=== PATIENT | female | born 1995 | race African-American/Black ===

== ENCOUNTER 2017-01-03 22:13 | Emergency (ER) | payer OTHER ==
[~2017-01-03] VITALS: Ht 157.5 cm; Wt 80.1 kg
[2017-01-03 22:19] VITALS: BP 135/89; PULSE 103; RESP 20; TEMP 98; O2SAT 98
[2017-01-03] MEDS ORDERED: BENZ1CAP34 PO (22:43)
[2017-01-03] MEDS ORDERED: ZITHTAB PO (22:43)
[2017-01-03] MEDS ORDERED: PRED10PA PO (22:43)
--- NOTE | 2017-01-03 22:48 | PD ---
HPI Chief Complaint: pelvic pain Time Seen by Provider: 22:38 Travel History International Travel<30 days: No Contact w/Intl Traveler<30days: No Traveled to known affect area: No History of Present Illness HPI This 21-year-old female is complaining of bilateral lower abdominal pain. Says the pain is been going on for several months. Sometimes is aggravated by eating. She has had sporadic vomiting and diarrhea. She has not lost weight in fact she thinks she has gained weight. She has never been . She was here last June and thought to have PID at that time. She did not respond to treatment, she was given Rocephin and Zithromax at that time. Her cultures for GC and Chlamydia were negative. She didn't get the pain every day. When it does come on it lasts about an hour. She has not noted any triggers. It is a lower abdominal crampy pain. She has been on multiple bouts of antibiotics over this period of time for treatment of a sinus infection PFSH Past Medical History Diminished Hearing: No Headaches: Yes Immunizations Current: No Tetanus Vaccination: Unknown Influenza Vaccination: No ?: Unknown LMP: WEEK , IRREGURLAR PERIODS Past Surgical History Surgical History: No Previous Surgery Social History Alcohol Use: No Tobacco Use: No Substance Use: No Allergies-Medications (Allergen,Severity, Reaction): Coded Allergies: No Known Allergies (Unverified , 01/03/17) Reported Meds & Prescriptions Reported Meds & Active Scripts Active Reported Benzonatate 200 Mg Cap 200 Mg PO TID PRN Prednisone (21) 10 mg tab Dose Pack (Prednisone) 10 Mg Pack 10 Mg PO DIRECTED Zithromax Z-Justin (Azithromycin) 250 Mg Dspk 250 Mg PO DIRECTED 500 MG (2 tabs) day 1, then 1 tab days 2-5. Review of Systems General / Constitutional: No: Fever, Chills, Weight Loss Eyes: No: Blurred Vision HENT: No: Headaches, Vertigo Cardiovascular: No: Chest Pain or Discomfort, Palpitations Respiratory: No: Cough, Shortness of Breath Gastrointestinal: Positive: Nausea, Vomiting, Diarrhea Genitourinary: Positive: Pelvic Pain Musculoskeletal: No: Myalgias, Arthralgias Skin: No Rash, No Itching Neurologic: No: Weakness Psychiatric: No: Anxiety Hematologic/Lymphatic: No: Easy Bruising Physical Exam Narrative GENERAL: Well-developed female SKIN: Focused skin assessment warm/dry. HEAD: Atraumatic. Normocephalic. EYES: Pupils equal and round. No scleral icterus. No injection or drainage. ENT: No nasal bleeding or discharge. Mucous membranes pink and moist. NECK: Trachea midline. No JVD. CARDIOVASCULAR: Regular rate and rhythm. No murmur appreciated. RESPIRATORY: No accessory muscle use. Clear to auscultation. Breath sounds equal bilaterally. GASTROINTESTINAL: Abdomen soft, non-tender, nondistended. Hepatic and splenic margins not palpable. Pelvic: There is no vaginal discharge. There is no pain with movement of the cervix. There is is not enlarged is no adnexal mass MUSCULOSKELETAL: No obvious deformities. No clubbing. No cyanosis. No edema. NEUROLOGICAL: Awake and alert. No obvious cranial nerve deficits. Motor grossly within normal limits. Normal speech. PSYCHIATRIC: Appropriate mood and affect; insight and judgment normal. Data Data Last Documented VS Vital Signs Date Time Temp Pulse Resp B/P Pulse Ox O2 Delivery O2 Flow Rate FiO2 01/03/17 23:24 20 01/03/17 22:19 98.0 103 135/89 98 Orders Complete Blood Count With Diff (01/03/17 22:44) Comprehensive Metabolic Panel (01/03/17 22:44) Urinalysis - C+S If Indicated (01/03/17 22:44) Gc And Chlamydia Pcr (01/03/17 22:44) Ed Urine Pregnancytest Poc (01/03/17 22:58) Labs Laboratory Tests Test 01/03/17 01/03/17 22:50 23:00 Urine Color YELLOW Urine Turbidity SLIGHT Urine pH 6.0 Urine Specific [place] 1.023 Urine Protein NEG mg/dL Urine Glucose (UA) NEG mg/dL Urine Ketones TRACE mg/dL Urine Occult Blood NEG Urine Nitrite NEG Urine Bilirubin NEG Urine Leukocyte Esterase NEG Urine WBC 0-2 /hpf Urine Squamous Epithelial > 8 /hpf Cells Urine Bacteria FEW /hpf Urine Mucus FEW /lpf Microscopic Urinalysis Comment CULT NOT INDICATED White Blood Count 8.9 TH/MM3 Red Blood Count 4.64 MIL/MM3 Hemoglobin 12.8 GM/DL Hematocrit 39.1 % Mean Corpuscular Volume 84.2 FL Mean Corpuscular Hemoglobin 27.5 PG Mean Corpuscular Hemoglobin 32.7 % Concent Red Cell Distribution Width 13.1 % Platelet Count 315 TH/MM3 Mean Platelet Volume 8.4 FL Neutrophils (%) (Auto) 54.0 % Lymphocytes (%) (Auto) 31.0 % Monocytes (%) (Auto) 8.6 % Eosinophils (%) (Auto) 3.7 % Basophils (%) (Auto) 2.7 % Neutrophils # (Auto) 4.9 TH/MM3 Lymphocytes # (Auto) 2.7 TH/MM3 Monocytes # (Auto) 0.8 TH/MM3 Eosinophils # (Auto) 0.3 TH/MM3 Basophils # (Auto) 0.2 TH/MM3 CBC Comment DIFF FINAL Differential Comment Sodium Level 141 MEQ/L Potassium Level 4.1 MEQ/L Chloride Level 105 MEQ/L Carbon Dioxide Level 28.6 MEQ/L Anion Gap 7 MEQ/L Blood Urea Nitrogen 14 MG/DL Creatinine 0.73 MG/DL Estimat Glomerular Filtration 124 ML/MIN Rate Random Glucose 95 MG/DL Calcium Level 9.1 MG/DL Total Bilirubin 0.2 MG/DL Aspartate Amino Transf 25 U/L (AST/SGOT) Alanine Aminotransferase 50 U/L (ALT/SGPT) Alkaline Phosphatase 90 U/L Total Protein 8.1 GM/DL Albumin 3.9 GM/DL [facility] Medical Decision Making Medical Screen Exam Complete: Yes Emergency Medical Condition: Yes Medical Record Reviewed: Yes Differential Diagnosis Differential includes inflammatory bowel disease, irritable bowel disease, Narrative Course Her white count is normal. Urine is negative for infection. Pelvic exam is not suggestive of PID. Patient is having intermittent pain every couple of days. She has been on multiple courses of antibiotics recently there is no evidence of surgical emergency. I will prescribe Bentyl for her to use as needed. To follow-up with her own medical doctor Diagnosis Primary Impression: Irritable bowel syndrome Qualified Code: K58.9 - Irritable bowel syndrome, unspecified type Scripts Dicyclomine (Bentyl)20 Mg Tab20 Mg PO TID #30 TAB Ref 0 Prov:Mor Moore MD 01/03/17 Disposition: 01 DISCHARGE HOME Condition: Stable Mor Moore MD Jan 03, 2017 22:48
[2017-01-03 23:09] LABS: AUTOMATED NEUTROPHIL # 4.9 TH/MM3 (1.8-7.7); BASOPHIL # 0.2 TH/MM3 (0-0.2); BASOPHIL % 2.7 % (0.0-2.0); EOSINOPHIL # 0.3 TH/MM3 (0-0.4); EOSINOPHIL % 3.7 % (0.0-4.0); HEMATOCRIT 39.1 % (35.0-46.0); HEMO FLAGS DIFF FINAL; LYMPHOCYTE # 2.7 TH/MM3 (1.0-4.8); MEAN CELL VOLUME 84.2 FL (80.0-100.0); MEAN CORPUSCULAR HEMOGLOBIN 27.5 PG (27.0-34.0); MEAN CORPUSCULAR HGB CONC 32.7 % (32.0-36.0); MONO % 8.6 % (0.0-8.0); PLATELET COUNT 315 TH/MM3 (150-450); RED BLOOD COUNT 4.64 MIL/MM3 (4.00-5.30); RED CELL DISTRIBUTION WIDTH 13.1 % (11.6-17.2); WHITE BLOOD COUNT 8.9 TH/MM3 (4.0-11.0)
[2017-01-03 23:11] LABS: BLOOD, URINE NEG (NEG); GLUCOSE,URINE NEG (NEG); KETONE, URINE TRACE mg/dL (NEG); NITRITE,URINE NEG (NEG)
[2017-01-03 23:17] LABS: CHLORIDE 105 MEQ/L (98-107); POTASSIUM 4.1 MEQ/L (3.5-5.1); SODIUM (NA) 141 MEQ/L (136-145)
[2017-01-03 23:20] LABS: ANION GAP 7 MEQ/L (5-15); BICARBONATE 28.6 MEQ/L (21.0-32.0); BLOOD UREA NITROGEN 14 MG/DL (7-18)
[2017-01-03 23:23] LABS: ALT (GPT) 50 U/L (9-42); AST (GOT) 25 U/L (16-38); GLOMERULAR FILTRATION RATE 124 ML/MIN (>89)
[2017-01-03 23:25] LABS: TOTAL BILIRUBIN ADULT 0.2 MG/DL (0.2-1.0)
[2017-01-03 23:26] LABS: ALKALINE PHOSPHATASE 90 U/L (45-117)
[2017-01-03 23:29] LABS: URINE COLOR YELLOW (YELLW/STRAW)
[2017-01-03 23:30] LABS: MUCUS URINE FEW /lpf (OCC); SQUAMOUS EPITHELIAL CELL URINE > 8 /hpf (0-5)
[2017-01-03 23:31] LABS: BACTERIA, URINE FEW /hpf; COMMENT (UR) CULT NOT INDICATED; CULTURE IF INDICATED CULT NOT INDICATED; WBC, URINE 0-2 /hpf (0-5)
[2017-01-03] MEDS ORDERED: BENT20TA PO (23:35)
[2017-01-03 23:53] VITALS: BP 146/74
[2017-01-04 11:07] LABS: CHLAMYDIA PCR NOT DETECTED (NOT DETECT); NEISSERIA PCR NOT DETECTED (NOT DETECT)
== END 2017-01-03 23:55 | disposition home or self-care (01) ==
LOC: PHED 22:13
DX: K58.0 Irritable bowel syndrome with diarrhea (principal)
CPT/HCPCS: 80053; 81001; 84703; 85025; 87491; 87591; 99284

== ENCOUNTER 2017-02-22 14:43 | Emergency (ER) | payer OTHER ==
[~2017-02-22] VITALS: Ht 154.9 cm; Wt 83.2 kg
[~2017-02-22 14:43] MED LIST: BENT20TA PO; BENZ1CAP34 PO; PRED10PA PO; ZITHTAB PO
[2017-02-22 14:50] VITALS: BP 137/90; PULSE 90; RESP 20; TEMP 98.2; O2SAT 99
[2017-02-22 15:39] LABS: BLOOD, URINE NEG (NEG); GLUCOSE,URINE NEG (NEG); KETONE, URINE NEG (NEG); NITRITE,URINE NEG (NEG)
[2017-02-22 15:42] LABS: METHOD OF COLLECTION CLEAN CATCH; URINE COLOR STRAW (YELLW/STRAW)
--- NOTE | 2017-02-22 16:08 | PD ---
HPI Chief Complaint: Abdominal Pain Time Seen by Provider: 15:51 Travel History International Travel<30 days: No Contact w/Intl Traveler<30days: No Traveled to known affect area: No History of Present Illness HPI This 21-year-old female is complaining of right lower quadrant pain. She says the pain started last night. It is not constant. It does vary somewhat in intensity. She does not recall having pain like this before. She has been having intermittent abdominal pain over the past few months. Her last period was in October. She says her periods are always erratic. She has never been . On the last visit here she had a pelvic exam which was unremarkable. the patient wishes not to have one on this visit. There is been no vomiting or diarrhea. She is not aware of any fever. [facility] Past Medical History Medical History: Denies Significant Hx Diminished Hearing: No Headaches: Yes Immunizations Current: No Influenza Vaccination: No ?: Not Past Surgical History Surgical History: No Previous Surgery Social History Alcohol Use: No Tobacco Use: No Substance Use: No Allergies-Medications (Allergen,Severity, Reaction): Coded Allergies: No Known Allergies (Unverified , 01/03/17) Reported Meds & Prescriptions Reported Meds & Active Scripts Active Review of Systems General / Constitutional: No: Fever, Chills Eyes: No: Diploplia, Blurred Vision HENT: No: Headaches, Vertigo Cardiovascular: No: Chest Pain or Discomfort, Palpitations Respiratory: No: Cough, Shortness of Breath Gastrointestinal: Positive: Nausea, Abdominal Pain, No: Vomiting, Diarrhea Genitourinary: No: Frequency Skin: No Rash, No Itching Physical Exam Narrative GENERAL: Well-developed female SKIN: Focused skin assessment warm/dry. HEAD: Atraumatic. Normocephalic. EYES: Pupils equal and round. No scleral icterus. No injection or drainage. ENT: No nasal bleeding or discharge. Mucous membranes pink and moist. NECK: Trachea midline. No JVD. CARDIOVASCULAR: Regular rate and rhythm. No murmur appreciated. RESPIRATORY: No accessory muscle use. Clear to auscultation. Breath sounds equal bilaterally. GASTROINTESTINAL: Abdomen soft, there is right lower quadrant tenderness without rigidity nondistended. Hepatic and splenic margins not palpable. MUSCULOSKELETAL: No obvious deformities. No clubbing. No cyanosis. No edema. NEUROLOGICAL: Awake and alert. No obvious cranial nerve deficits. Motor grossly within normal limits. Normal speech. PSYCHIATRIC: Appropriate mood and affect; insight and judgment normal. Data Data Last Documented VS Vital Signs Date Time Temp Pulse Resp B/P Pulse Ox O2 Delivery O2 Flow Rate FiO2 02/22/17 17:24 74 16 111/60 100 Room Air 02/22/17 14:50 98.2 Orders Urinalysis - C+S If Indicated (02/22/17 14:59) Ed Urine Pregnancytest Poc (02/22/17 14:59) Complete Blood Count With Diff (02/22/17 15:57) Comprehensive Metabolic Panel (02/22/17 15:57) Ct Abd/Pel W Iv Contrast(Rout) (02/22/17 15:57) Urine Culture (02/22/17 15:07) Iohexol 350 Inj (Omnipaque 350 Inj) (02/22/17 16:34) Labs Laboratory Tests Test 02/22/17 02/22/17 02/22/17 15:07 15:30 16:40 Urine Collection Type CLEAN CATCH Urine Color STRAW Urine Turbidity SLIGHT Urine pH 6.0 Urine Specific [place] 1.019 Urine Protein NEG mg/dL Urine Glucose (UA) NEG mg/dL Urine Ketones NEG mg/dL Urine Occult Blood NEG Urine Nitrite NEG Urine Bilirubin NEG Urine Leukocyte Esterase NEG Urine WBC 0-2 /hpf Urine Squamous Epithelial > 8 /hpf Cells Urine Amorphous Sediment MOD Urine Bacteria MOD /hpf Microscopic Urinalysis Comment CULTURE INDICATED Urine Collection Time 1507 White Blood Count 6.9 TH/MM3 Red Blood Count 4.62 MIL/MM3 Hemoglobin 12.6 GM/DL Hematocrit 38.2 % Mean Corpuscular Volume 82.8 FL Mean Corpuscular Hemoglobin 27.2 PG Mean Corpuscular Hemoglobin 32.9 % Concent Red Cell Distribution Width 12.1 % Platelet Count 269 TH/MM3 Mean Platelet Volume 9.0 FL Neutrophils (%) (Auto) 61.8 % Lymphocytes (%) (Auto) 26.2 % Monocytes (%) (Auto) 8.7 % Eosinophils (%) (Auto) 2.5 % Basophils (%) (Auto) 0.8 % Neutrophils # (Auto) 4.2 TH/MM3 Lymphocytes # (Auto) 1.8 TH/MM3 Monocytes # (Auto) 0.6 TH/MM3 Eosinophils # (Auto) 0.2 TH/MM3 Basophils # (Auto) 0.1 TH/MM3 CBC Comment AUTO DIFF Differential Comment AUTO DIFF CONFIRMED Platelet Estimate NORMAL Platelet Morphology Comment NORMAL Sodium Level 140 MEQ/L Potassium Level 4.0 MEQ/L Chloride Level 106 MEQ/L Carbon Dioxide Level 29.2 MEQ/L Anion Gap 5 MEQ/L Blood Urea Nitrogen 12 MG/DL Creatinine 0.61 MG/DL Estimat Glomerular Filtration 153 ML/MIN Rate Random Glucose 78 MG/DL Calcium Level 8.5 MG/DL Total Bilirubin LESS THAN 0.1 MG/DL Aspartate Amino Transf 20 U/L (AST/SGOT) Alanine Aminotransferase 36 U/L (ALT/SGPT) Alkaline Phosphatase 99 U/L Total Protein 6.8 GM/DL Albumin 3.2 GM/DL [facility] Medical Decision Making Medical Screen Exam Complete: Yes Emergency Medical Condition: Yes Medical Record Reviewed: Yes Differential Diagnosis Differential includes ovarian cyst, appendicitis, nonspecific abdominal pain Narrative Course CT shows bilateral ovarian cysts with a small amount of free fluid. There is no evidence of appendicitis. Patient is stable for discharge Diagnosis Primary Impression: Ovarian cyst Disposition: DISCHARGE HOME Condition: Stable Mor Moore MD February 22, 2017 16:08
[2017-02-22 16:09] VITALS: BP 120/74; PULSE 78; RESP 18; O2SAT 98
[2017-02-22 16:09] LABS: AUTOMATED NEUTROPHIL # 4.2 TH/MM3 (1.8-7.7); BASOPHIL # 0.1 TH/MM3 (0-0.2); BASOPHIL % 0.8 % (0.0-2.0); EOSINOPHIL # 0.2 TH/MM3 (0-0.4); EOSINOPHIL % 2.5 % (0.0-4.0); HEMATOCRIT 38.2 % (35.0-46.0); LYMPH % 26.2 % (9.0-44.0); LYMPHOCYTE # 1.8 TH/MM3 (1.0-4.8); MEAN CELL VOLUME 82.8 FL (80.0-100.0); MEAN CORPUSCULAR HEMOGLOBIN 27.2 PG (27.0-34.0); MEAN CORPUSCULAR HGB CONC 32.9 % (32.0-36.0); MONO % 8.7 % (0.0-8.0); NEUT % 61.8 % (16.0-70.0); PLATELET COUNT 269 TH/MM3 (150-450); RED BLOOD COUNT 4.62 MIL/MM3 (4.00-5.30); RED CELL DISTRIBUTION WIDTH 12.1 % (11.6-17.2); WHITE BLOOD COUNT 6.9 TH/MM3 (4.0-11.0)
[2017-02-22 16:11] LABS: BACTERIA, URINE MOD /hpf; COMMENT (UR) CULTURE INDICATED; CULTURE IF INDICATED CULTURE INDICATED; SQUAMOUS EPITHELIAL CELL URINE > 8 /hpf (0-5); WBC, URINE 0-2 /hpf (0-5)
[2017-02-22 16:17] LABS: HEMO FLAGS AUTO DIFF
[2017-02-22] MEDS ORDERED: IOHEXOL 350 MG/ML 10 ML VIAL (for RAD DIAG) IV ONE (16:34)
--- NOTE | 2017-02-22 16:44 | RADHPO ---
EXAM DATE/TIME: 02/22/2017 16:19 [place] COMPARISON: No previous studies available for comparison. INDICATIONS : Right lower quadrant pain. Evaluate for appendicitis. IV CONTRAST: 90 cc Omnipaque 350 (iohexol) IV ORAL CONTRAST: No oral contrast ingested. RADIATION DOSE: 14.07 CTDIvol (mGy) MEDICAL HISTORY : None SURGICAL HISTORY : None. ENCOUNTER: Initial ACUITY: 1 day PAIN SCALE: 4/10 LOCATION: Right lower quadrant TECHNIQUE: Volumetric scanning of the abdomen and pelvis was performed. Using automated exposure control and ad justment of the mA and/or kV according to patient size, radiation dose was kept as low as reasonably achievable to obtain optimal diagnostic quality images. FINDINGS: LOWER LUNGS: The visualized lower lungs are clear. LIVER: Homogeneous density without lesion. There is no dilation of the biliary tree. No calcified gallston es. SPLEEN: Normal size without lesion. PANCREAS: Within normal limits. KIDNEYS: Normal in size and shape. There is no mass, stone or hydronephrosis. ADRENAL GLANDS: Within normal limits. VASCULAR: There is no aortic aneurysm. BOWEL/MESENTERY: The stomach, small bowel, and colon demonstrate no acute abnormality. There is no free intraperitone al air or fluid. The appendix is normal in caliber and demonstrates no acute inflammation. There is a tiny calcified appendicolith measuring 7 mm. ABDOMINAL WALL: Within normal limits. RETROPERITONEUM: There is no lymphadenopathy. BLADDER: No wall thickening or mass. REPRODUCTIVE: Minimal free fluid is noted within the cul-de-sac. Bilateral ovarian cysts are noted measuring 3.1 cm on the right and 2.7 cm on the left. The uterus is unremarkable. INGUINAL: There is no lymphadenopathy or hernia. MUSCULOSKELETAL: Within normal limits for patient age. CONCLUSION: 1. Minimal free fluid within the cul-de-sac which is nonspecific. 2. Bilateral ovarian cysts measuring 3.1 cm on the right and 2.7 cm on left. 3. No CT evidence of acute appendicitis. There is a tiny 7 mm calcified appendicolith noted. Jan Cortes MD on February 22, 2017 at 16:37 Board Certified Radiologist. This report was verified electronically.
[2017-02-22 17:05] LABS: CHLORIDE 106 MEQ/L (98-107); SODIUM (NA) 140 MEQ/L (136-145)
[2017-02-22 17:08] LABS: PLATELET ESTIMATE SMEAR NORMAL (NORMAL); PLATELET MORPHOLOGY NORMAL (NORMAL); SCAN/DIFF AUTO DIFF CONFIRMED
[2017-02-22 17:09] LABS: ANION GAP 5 MEQ/L (5-15); BICARBONATE 29.2 MEQ/L (21.0-32.0); BLOOD UREA NITROGEN 12 MG/DL (7-18)
[2017-02-22 17:11] LABS: ALT (GPT) 36 U/L (9-42)
[2017-02-22 17:12] LABS: AST (GOT) 20 U/L (16-38); GLOMERULAR FILTRATION RATE 153 ML/MIN (>89)
[2017-02-22 17:13] LABS: TOTAL BILIRUBIN ADULT LESS THAN 0.1 MG/DL (0.2-1.0)
[2017-02-22 17:15] LABS: ALKALINE PHOSPHATASE 99 U/L (45-117)
[2017-02-22 17:24] VITALS: BP 111/60; PULSE 74; RESP 16; O2SAT 100
== END 2017-02-22 17:51 | disposition home or self-care (01) ==
LOC: PHED 14:43
DX: N83.202 Unspecified ovarian cyst, left side (principal); N83.201 Unspecified ovarian cyst, right side
CPT/HCPCS: 74177; 80053; 81001; 84703; 85025; 87086; 99285; Q9967

== ENCOUNTER 2017-04-02 03:05 | Observation (INO) | payer MEDICAID, OTHER ==
[~2017-04-02] VITALS: Ht 160 cm; Wt 87.2 kg
[2017-04-02 03:07] VITALS: BP 167/104; PULSE 83; RESP 16; TEMP 98.3; O2SAT 100
--- NOTE | 2017-04-02 05:04 | PD ---
HPI Chief Complaint: Abdominal Pain Time Seen by Provider: 03:14 Travel History International Travel<30 days: No Contact w/Intl Traveler<30days: No Traveled to known affect area: No History of Present Illness HPI Patient is a 21-year-old female who comes in complaining of abdominal pain. she was originally seen at the [place] facility, where she had a CT scan done that showed possible early appendicitis. Patient says she has been having abdominal pain for a few days now. She says it got acutely worse today. She says the pain is mostly in her right lower quadrant. She said some nausea but no vomiting. She denies fever or chills. She also reports having a slight headache. [facility] Past Medical History Diminished Hearing: No Headaches: Yes Immunizations Current: Yes ?: Not Social History Alcohol Use: No Tobacco Use: No Substance Use: No Allergies-Medications (Allergen,Severity, Reaction): Coded Allergies: No Known Allergies (Unverified , 04/01/17) Reported Meds & Prescriptions Reported Meds & Active Scripts Active No Active Prescriptions or Reported Medications Review of Systems Except as stated in HPI: all other systems reviewed are Neg General / Constitutional: No: Fever, Chills HENT: Positive: Headaches Cardiovascular: No: Chest Pain or Discomfort Respiratory: No: Shortness of Breath Gastrointestinal: Positive: Nausea, Abdominal Pain, No: Vomiting Genitourinary: No: Dysuria Skin: No Rash, No Change in Pigmentation Neurologic: No: Weakness, Dizziness Physical Exam Narrative GENERAL: Awake and alert, in no acute distress. SKIN: Focused skin assessment warm/dry. HEAD: Atraumatic. Normocephalic. EYES: Pupils equal and round. No scleral icterus. ENT: Mucous membranes pink and moist. NECK: Trachea midline. No JVD. CARDIOVASCULAR: Regular rate and rhythm. No murmur appreciated. RESPIRATORY: No accessory muscle use. Clear to auscultation. Breath sounds equal bilaterally. GASTROINTESTINAL: Abdomen soft, nondistended. Tender to palpation of the right lower quadrant. Voluntary guarding, no rebound. MUSCULOSKELETAL: No obvious deformities. No clubbing. No cyanosis. No edema. NEUROLOGICAL: Awake and alert. No obvious cranial nerve deficits. Motor grossly within normal limits. Normal speech. PSYCHIATRIC: Appropriate mood and affect; insight and judgment normal. Data Data Last Documented VS Vital Signs Date Time Temp Pulse Resp B/P Pulse Ox O2 Delivery O2 Flow Rate FiO2 04/02/17 03:07 98.3 83 16 167/104 100 Room Air Orders Admit Order (Ed Use Only) (04/02/17 ) Cefoxitin Inj (Mefoxin Inj) (04/02/17 05:15) Acetaminophen (Tylenol) (04/02/17 05:15) MDM Medical Decision Making Medical Screen Exam Complete: Yes Emergency Medical Condition: Yes Medical Record Reviewed: Yes Differential Diagnosis Appendicitis versus ovarian cyst versus UTI Narrative Course Patient is a 21-year-old female comes in complaining of abdominal pain. She had a CT scan performed that shows early appendicitis. Patient given Tylenol and Mefoxin here. She does not want anything else for pain. Patient admitted to surgery for further management. Diagnosis Primary Impression: Appendicitis Qualified Code: K35.80 - Acute appendicitis, unspecified acute appendicitis type Admitting Information Admitting Physician Requests: Admit Scripts No Active Prescriptions or Reported Meds Sangita Keene MD Apr 02, 2017 05:04
[2017-04-02] MEDS ORDERED: ACETAMINOPHEN 325 MG TAB PO ONE (05:15)
[2017-04-02] MEDS ORDERED: ceFOXitin INJ 2 GM in SODIUM CHLORIDE 0.9% INJ 100 ML IV ONE (05:15)
[2017-04-02] MEDS: SODIUM CHLOR 0.9% 1000 ML INJ 1,000 ML IV SCH ×2 (06:13→15:30)
[2017-04-02 06:22] VITALS: BP 128/79; PULSE 77; RESP 16; O2SAT 100
[2017-04-02 07:38] VITALS: BP 130/87; PULSE 71; RESP 16; TEMP 97; O2SAT 100
[2017-04-02] MEDS: HYDROmorphone HCL PF 1 MG/ML VIAL IV PRN ×2 (08:38→21:24)
[2017-04-02] MEDS ORDERED: SODIUM CHLORIDE 0.9% FLUSH 10 ML FLUSH IV FLUSH PRN (09:15)
[2017-04-02] MEDS ORDERED: ONDANSETRON HCL 4 MG/2 ML VIAL IV PUSH PRN (09:15)
--- NOTE | 2017-04-02 09:49 | HHI.HP ---
cc: Mikhail Santiago MD HPI Service General Surgery Primary Care Physician Non-Staff Admission Diagnosis Appendicitis Chief Complaint: Abdominal pain x7 days with mild nausea. History of Present Illness This is a 21 year old female with a past medical history of pre-diabetes (diet controlled) who developed sudden RIGHT lower quadrant pain 7 days ago. She has had mild nausea associated with the pain but no vomiting. She has had little appetite. She arrived to the ED at [facility] for evaluation of abdominal pain and a CT abd/pelvis was obtained which showed 4 mm appendicolith in the distal aspect of appendix and possible early appendicitis. She reports her last bowel movement was two days ago. Her last menstrual cycle was Oct 2016 which is normal for her have a menstrual cycle only every few months. She does take control. A General Surgery admission has been requested for evaluation of possible acute appendicitis. Review of Systems Constitutional: COMPLAINS OF: Change in appetite, DENIES: Fatigue, Weight gain , Weight loss, Chills Endocrine: DENIES: Polydipsia, Polyuria, Polyphagia Eyes: DENIES: Diplopia Ears, nose, mouth, throat: DENIES: Hearing loss Respiratory: DENIES: Apneas Cardiovascular: DENIES: Chest pain Gastrointestinal: COMPLAINS OF: Abdominal pain (RLQ ), Constipation, Nausea, DENIES: Vomiting Genitourinary: DENIES: Urgency Musculoskeletal: DENIES: Joint pain Integumentary: DENIES: Abnormal pigmentation Hematologic/lymphatic: DENIES: Bruising Neurologic: DENIES: Headache, Localized weakness Psychiatric: DENIES: Mood changes, Depression, Hallucinations Past Family Social History Past Medical History Pre-diabetic (diet controlled) Past Surgical History None Reported Medications Control Allergies: Coded Allergies: No Known Allergies (Unverified , 04/01/17) Active Ordered Medications Current Medications Medications (Trade) Dose Ordered Sig/Emma Route Start Time Stop Time Status Last Admin (NS 1000 ml Inj) 1,000 ml @ 100 mls/hr Q10H IV 04/02/17 05:30 04/02/17 06:13 (Dilaudid Pf Inj) 1 mg Q2H PRN IV 04/02/17 05:30 04/02/17 08:38 (NS Flush) 2 ml BID IV FLUSH 04/02/17 21:00 (NS Flush) 2 ml UNSCH PRN IV FLUSH 04/02/17 09:15 (Zofran Inj) 4 mg Q6H PRN IV PUSH 04/02/17 09:15 Family History Non contributory Social History Denies tobacco use Denies ETOH use Denies illicit drug use Physical Exam Vital Signs Vital Signs Date Time Temp Pulse Resp B/P Pulse Ox O2 Delivery O2 Flow Rate FiO2 04/02/17 07:38 97.0 71 16 130/87 100 04/02/17 06:22 77 16 128/79 100 Room Air 04/02/17 06:17 Room Air 04/02/17 03:07 98.3 83 16 167/104 100 Room Air Physical Exam GENERAL: Very pleasant 21 year old female resting in bed in no acute distress. SKIN: Warm and dry. HEAD: Atraumatic. Normocephalic. EYES: Pupils equal and round. No scleral icterus. No injection or drainage. ENT: No nasal bleeding or discharge. Mucous membranes pink and moist. NECK: Trachea midline. . CARDIOVASCULAR: Regular rate and rhythm. RESPIRATORY: No accessory muscle use. Clear to auscultation. Breath sounds equal bilaterally. GASTROINTESTINAL: Abdomen soft, nondistended; RLQ tenderness with palpation. No visible scars. MUSCULOSKELETAL: Extremities without clubbing, cyanosis, or edema. No obvious deformities. NEUROLOGICAL: Awake and alert. No obvious cranial nerve deficits. Motor grossly within normal limits. Five out of 5 muscle strength in the arms and legs. Normal speech. PSYCHIATRIC: Appropriate mood and affect; insight and judgment normal. 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 Santiago -Antibiotics -IVF -NPO -Obtain consents Discussed Condition With Estrella Jaffe Ms., RN Apr 02, 2017 09:49
[2017-04-02] MEDS ORDERED: ONDANSETRON HCL 4 MG/2 ML VIAL IV PUSH ONE (11:29)
[2017-04-02] MEDS ORDERED: NEOSTIGMINE 3 MG/3 ML SYR IV ONE (11:29)
[2017-04-02] MEDS ORDERED: KETOROLAC TROMETHAMINE 60 MG/2 ML (IM) VIAL IM ONE (11:29)
[2017-04-02] MEDS ORDERED: LACTATED RINGER'S 1000 ML INJ 1,000 ML IV ONE (11:29)
[2017-04-02] MEDS ORDERED: PROPOFOL 200 MG/20 ML AMP IV ONE (11:29)
[2017-04-02 11:42] VITALS: BP 125/83; PULSE 80; RESP 16; TEMP 96.7; O2SAT 100
[2017-04-02 15:17] VITALS: BP 106/58; PULSE 75; RESP 16; TEMP 97.5; O2SAT 99
[2017-04-02] MEDS ORDERED: BUPIVACAINE/EPINEPHRINE 0.5% 50 ML VIAL ONE (15:44)
[2017-04-02] MEDS ORDERED: DEXAMETHASONE SOD PHOS 4 MG/ML VIAL ONE (16:27)
[2017-04-02] MEDS ORDERED: FAMOTIDINE 20 MG/2 ML VIAL ONE (16:27)
[2017-04-02] MEDS ORDERED: MIDAZOLAM HCL 2 MG/2 ML VIAL ONE (16:27)
[2017-04-02] MEDS ORDERED: ACETAMINOPHEN 1000 MG/100 ML VIAL IV ONE (16:29)
[2017-04-02] MEDS ORDERED: ceFAZolin 2 GM PREMIX 50 ML ONE (16:58)
[2017-04-02] MEDS ORDERED: fentaNYL CITRATE 250 MCG/5 ML AMP ONE (17:51)
--- NOTE | 2017-04-02 17:57 | HHI.PR ---
Immediate Post Op Note Procedure Date: Apr 02, 2017 Pre Op Diagnosis: (1) Appendicitis Post Op Diagnosis: (1) PID (acute pelvic inflammatory disease) Surgeon: Mikhail Santiago Car Greaser(s): staff Procedure: diagnostic laparoscopy, appendectomy Findings: pelvic inflammation normal appendix Complications: none Specimen(s) removed: appendix Estimated blood loss: 10ml Anesthesia: General Drains: None IVF Patient to: PACU Patient Condition: Good Mikhail Santiago MD Apr 02, 2017 17:57
[2017-04-02] MEDS ORDERED: DO NOT ADM ANY ANTICOAGULANT DRUGS PRN (18:15)
--- NOTE | 2017-04-02 18:21 | MH ---
cc: JOSLYN GARIBAY DATE OF ADMISSION 04/02/2017 CHIEF COMPLAINT Right lower quadrant pain. 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 The patient underwent a CT scan which showed a concern for possible appendicitis although there is no significant inflammation of the appendix and there was an appendicolith noted incidentally as well. The patient was transferred from [facility] for observation to rule appendicitis. After discussion with the patient the appendicitis was still on the differential. The patient states she has had one week of pain that worsened steadily and she never had this pain before but she has had similar pain in the past but not in the same location. This is not associated with any nausea, vomiting, constipation, diarrhea, fevers, chills or night sweats. The patient denies any dysuria or pain with intercourse. Urinalysis was noted to be positive on dipstick analysis in the emergency department. White blood cell count was noted to be within normal limits. REVIEW OF SYSTEMS 12-point review of systems was conducted with the patient is negative. The pertinent positives mentioned above in the history of present illness. PAST MEDICAL HISTORY History of headaches. PAST SURGICAL HISTORY None. ALLERGIES NO KNOWN DRUG ALLERGIES. MEDICATIONS None. SOCIAL HISTORY The patient denies alcohol, tobacco or illicit drug use. FAMILY HISTORY Noncontributory. PHYSICAL EXAMINATION VITAL SIGNS: Temperature 98.2 degrees, pulse 83, respiratory rate 16, blood pressure 157/104. GENERAL: The patient is a well-developed, well-nourished -Stateless female in no acute distress. HEENT: Normocephalic, atraumatic. Pupils are round, reactive, accommodate to light. Sclerae is anicteric. Mucous membranes are moist. NECK: Supple. No JVD. LUNGS: Clear to auscultation bilaterally. Nonlabored breathing pattern. HEART: Regular rhythm. No murmurs. ABDOMEN: Soft, nondistended. Normal bowel sounds. She is actually tender in the right lower quadrant and as well to suprapubic area without focal tenderness or peritonitis or rebound tenderness. No surgical scars. No hernias. BACK: No CVA tenderness. EXTREMITIES: No clubbing, cyanosis or edema. RECTAL: Deferred. DIABETES SOLUTIONS SPECIALIST: Deferred. NEUROLOGIC: The patient is awake and alert, oriented x3. Nonfocal peripheral exam. Cranial nerves II-XII are grossly intact. ASSESSMENT/PLAN The patient is a 21-year-old female with worsening right lower quadrant pain over 7 days. The patient unlikely has acute appendicitis as with several days of pain without significant secondary signs on a CT scan and without any signs of significant inflammation on physical exam or laboratory values. So this is unlikely acute appendicitis. This could be an atypical presentation, however, so I did discuss the possible diagnostic laparoscopy with the patient to rule out appendicitis as only direct visualization and surgery could rule out appendicitis immediately. The only alternative would be continued observation. Discussion of the risks, benefits, alternatives to surgery as well as observation or appendicitis. Also discussed other etiologies of her pain including a DIABETES SOLUTIONS SPECIALIST or urinary nature. I would like to very much to proceed with diagnostic laparoscopy to the hopes of obtaining diagnosis as well as appendectomy to rule out possible appendicitis. We will proceed with the operating room the next available time. We will maintain the patient n.p.o. and continue antibiotics. Joslyn Garibay MD AWG/EO /5:49 PM /6:04 PM
[2017-04-02 19:00] VITALS: BP 122/75; PULSE 87; RESP 17; TEMP 97.9; O2SAT 99
--- NOTE | 2017-04-02 20:54 | PD.CONS ---
HPI Chief Complaint RLQ pain, report of pelvic inflammation noted on L/S Date Seen: Apr 02, 2017 Time Seen: 20:00 Travel History International Travel<30 Days: No Contact w/Intl Traveler<30Days: No Known Affected Area: No History of Present Illness HPI 21y/o G0 presented with a one week h/o right lower quadrant abdominal pain. She was initially seen at [place] ED and had a CT scan that showed concern for possible appendicitis. The patient reports she has had one week of pain that worsened steadily. She reports she has had pain since 07/12 that is bilateral, however RLQ has been greater than LLQ. She reports that sometimes the pain used to feel like it radiates to her umbilicus, then moves lower. She reports the pain has become constant in her RLQ. She was seen about 1/5 months ago and told she had an ovarian cyst that was leaking and was subsequently placed on OCPs by her PCP. SHe reports that one week ago, the pain started again, and has been constant with a cramping and stabbing nature. She reports that she tried to ignore it but by last night the pain was much more severe and she was unable to tolerate the pain. She tried tylenol without relief and in the past has tried motrin without significant relief. She reports some associated nausea, denies any vomiting, fever, chills, abnormal vaginal discharge, abnormal vaginal bleeding, night sweats, constipation, or other associated symptoms. She is sexually active but does not have a new sexual partner. She denies any dysuria or pain with intercourse. Para: 0 : 0 Miscarriage: 0 : 0 History Past Medical History Narrative Medical Migraine CAMPBELL Pre-Diabetes Obstetric History Obstetric History G0 Menarche at 16-15 Menses irregular Menses last 7d Denies h/o STDs Denies change in sexual partner No PAP Past Surgical History Narrative Surgical L/S appendectomy (04/02/17) Family History Narrative Family History Asthma DM Social History Alcohol Use: No Tobacco Use: No Substance Abuse: No Allergies-Medications (Allergen,Severity, Reaction): Coded Allergies: No Known Allergies (Unverified , 04/01/17) Home Meds No Active Prescriptions or Reported Meds Review of Systems Gastrointestinal: Nausea, Abdominal Pain Physical Exam Vital Signs Date Time Temp Pulse Resp B/P Pulse Ox O2 Delivery O2 Flow Rate FiO2 04/02/17 18:15 98.9 84 16 124/64 96 Nasal Cannula 2 04/02/17 18:00 91 16 119/63 95 Nasal Cannula 2 04/02/17 17:48 98.9 120 16 112/60 94 Nasal Cannula 3 04/02/17 15:17 97.5 75 16 106/58 99 04/02/17 11:42 96.7 80 16 125/83 100 04/02/17 09:15 16 04/02/17 07:38 97.0 71 16 130/87 100 04/02/17 07:15 16 04/02/17 06:22 77 16 128/79 100 Room Air 04/02/17 06:17 Room Air 04/02/17 03:07 98.3 83 16 167/104 100 Room Air Narrative GENERAL: Well-nourished, well-developed patient. A&Ox3, NAD SKIN: Warm and dry. HEAD: Normocephalic and atraumatic. EYES: No scleral icterus. No injection or drainage. ENT: No nasal drainage noted. Mucous membranes pink. Airway patent. NECK: Supple, trachea midline. No JVD. CARDIOVASCULAR: Regular rate and rhythm without murmurs, gallops, or rubs. RESPIRATORY: Breath sounds equal bilaterally. No accessory muscle use. BREASTS: Bilateral exam showed no masses , no retractions, no nipple discharge. ABDOMEN/GI: Abdomen soft, appropriately tender, bowel sounds present, no rebound , no guarding GENITOURINARY: patient declined examination EXTREMITIES: No cyanosis or edema. BACK: Nontender without obvious deformity. No CVA tenderness. NEUROLOGICAL: Awake and alert. Motor and sensory grossly within normal limits. Five out of 5 muscle strength in all muscle groups. Normal speech. Data Data Vital Signs Reviewed: Yes Orders Admit Order (Ed Use Only) (04/02/17 ) Cefoxitin Inj (Mefoxin Inj) (04/02/17 05:15) Acetaminophen (Tylenol) (04/02/17 05:15) Vital Signs (Adult) ANGÉLICA.Q4H (04/02/17 05:17) Diet Npo (04/02/17 Breakfast) Activity Oob Ad Reina (04/02/17 05:17) Sodium Chlor 0.9% 1000 Ml Inj (Ns 1000 M (04/02/17 05:30) Hydromorphone Pf Inj (Dilaudid Pf Inj) (04/02/17 05:30) Diet Progression Instructions (04/02/17 06:30) ^ Obtain (04/02/17 06:30) ^ Lab Studies (04/02/17 06:30) ^ Write Order (04/02/17 06:30) Scd / Jasson / Foot Pump ANGÉLICA.QSHIFT (04/02/17 06:30) ^ Iv Setup For Or (04/02/17 06:30) ^ IV (04/02/17 06:30) ^ Iv Piggyback For Or (04/02/17 06:30) Bedside Glucose .Prior to OR (04/02/17 06:30) ^ Medication Indications (04/02/17 06:30) Sleeve, Knee Sequential Jasson Pr (04/02/17 06:30) Consult Dalton Nfs (04/02/17 ) Place In Observation (04/02/17 ) Code Status (04/02/17 09:10) Vital Signs (Adult) Q4H (04/02/17 09:10) Consent (04/02/17 09:10) Sodium Chloride 0.9% Flush (Ns Flush) (04/02/17 21:00) Sodium Chloride 0.9% Flush (Ns Flush) (04/02/17 09:15) Scd Bilateral/Knee High ANGÉLICA.QSHIFT (04/02/17 09:10) Scd / Jasson / Foot Pump 08,20 (04/02/17 09:10) Ondansetron Inj (Zofran Inj) (04/02/17 09:15) Bupivacaine-Epineph 0.5% Inj (Sensorcain (04/02/17 15:44) Midazolam Inj (Versed Inj) (04/02/17 16:27) Famotidine Inj (Pepcid Inj) (04/02/17 16:27) Dexamethasone Inj (Decadron Inj) (04/02/17 16:27) Acetaminophen Inj (Ofirmev Inj) (04/02/17 16:29) Cefazolin 2 Gm Premix (Ancef 2 Gm Premix (04/02/17 16:58) Diet Regular Basic (04/02/17 Dinner) Fentanyl Inj (Fentanyl Inj) (04/02/17 17:51) Consult Gynecology (04/02/17 ) (Hub Use Only)Inp Phy Cons/Ref (04/02/17 ) Misc Nursing Information (04/02/17 18:15) (Hub Use Only)Inp Phy Cons/Ref (04/02/17 ) Class Iv Pacu Ea 30 Min (04/02/17 ) General/Pacu (04/02/17 ) Post Anesthesia Oxygen (04/02/17 ) Cefoxitin Inj (Mefoxin Inj) (04/02/17 21:00) Doxycycline (Vibramycin) (04/02/17 21:00) MDM Plan A/P: 21y/o G0 1. Pelvic Inflammatory Disease: patient admitted with possible appendicitis and underwent L/S appendectomy today. Pelvic inflammation was noted on laparoscopy. Patient declined pelvic examination (speculum and bimanual exam) due to recent postop status. Mild abdominal tenderness but recently postop. Discussed PID with patient, discussed causes including but not limited to STDs. Patient denies risk factors (new sexual partner, etc), will check GC/Chlamydia. Discussed treatment options and as per guidelines, will order cefoxitin 2g q 6h and doxycycline 100mg q 12h. Patient may be d/c home to complete a 14 day course of doxycycline 100mg BID when clinical improvement noted for at least 24h. No evidence of TOA noted, but if concern for TOA, would add flagyl 500mg TID. Will continue to follow with you. Please call for any questions or concerns. 2. Irregular menses and h/o ovarian cysts: patient currently on OCPs, would recommend f/u with moisture tester as outpatient 3. h/o pre-DM: continue current management Appreciate consult on this very pleasant young lady, please call with other issues. Admitting diagnosis: Appendicitis Scripts No Active Prescriptions or Reported Meds Ny Swann MD Apr 02, 2017 20:54
[2017-04-02] MEDS: DOXYCYCLINE HYCLATE 100 MG CAP PO SCH (21:23)
[2017-04-02] MEDS: SODIUM CHLORIDE 0.9% FLUSH 10 ML FLUSH IV FLUSH SCH (21:24)
[2017-04-02] MEDS: ceFOXitin INJ 2 GM in SODIUM CHLORIDE 0.9% INJ 100 ML IV SCH (21:24)
[2017-04-03] VITALS: BP 111/54; PULSE 81; RESP 16; TEMP 97.4; O2SAT 99
[2017-04-03] MEDS: SODIUM CHLOR 0.9% 1000 ML INJ 1,000 ML IV SCH ×3 (01:03→21:21)
[2017-04-03] MEDS: HYDROmorphone HCL PF 1 MG/ML VIAL IV PRN ×2 (03:56→08:53)
[2017-04-03] MEDS: ceFOXitin INJ 2 GM in SODIUM CHLORIDE 0.9% INJ 100 ML IV SCH ×4 (03:56→21:20)
[2017-04-03 04:00] VITALS: BP 116/67; PULSE 67; RESP 16; TEMP 96.1; O2SAT 97
[2017-04-03 08:00] VITALS: BP 114/64; PULSE 75; RESP 18; TEMP 97.4; O2SAT 99
[2017-04-03] MEDS: DOXYCYCLINE HYCLATE 100 MG CAP PO SCH ×2 (08:52→21:20)
[2017-04-03] MEDS: SODIUM CHLORIDE 0.9% FLUSH 10 ML FLUSH IV FLUSH SCH ×2 (08:53→21:21)
[2017-04-03 10:26] LABS: CHLAMYDIA PCR NOT DETECTED (NOT DETECT); NEISSERIA PCR NOT DETECTED (NOT DETECT)
[2017-04-03 12:11] VITALS: BP 123/69; PULSE 75; RESP 18; TEMP 97.3; O2SAT 99
--- NOTE | 2017-04-03 12:25 | HHI.PR ---
Subjective Subjective Notes feels better Objective Vitals/I&O Vital Signs Date Time Temp Pulse Resp B/P Pulse Ox O2 Delivery O2 Flow Rate FiO2 04/03/17 12:11 97.3 75 18 123/69 99 04/02/17 18:15 Nasal Cannula 2 Labs Laboratory Tests Test 04/03/17 04:08 Chlamydia trachomatis DNA NOT DETECTED (PCR) Neisseria gonorrhoeae DNA NOT DETECTED (PCR) Radiology CT abd/pelvis from [place] [facility]---4mm appendicolith in the distal aspect of the appendix with possible early appendicitis Lungs: Clear Abdomen: Non-distended, Post-op tenderness Extremities: No edema, Perfused, SCD's on A/P Assessment and Plan 21yo female s/p Dx lap, appendectomy, stable. DENTAL HYGIENIST rec appreciated. oral pain meds reg diet OOB likely Dc later today if continues to be AF, pain improving Mikhail Santiago MD Apr 03, 2017 12:25
[2017-04-03] MEDS ORDERED: KETOROLAC TROMETHAMINE 30 MG/ML (IVP) VIAL IVP PRN (12:30)
[2017-04-03] MEDS ORDERED: ACETAMINOPHEN/HYDROcodone 325 MG/5 MG TAB PO PRN (12:30)
[2017-04-03] MEDS: ACETAMINOPHEN/HYDROcodone 325 MG/5 MG TAB PO PRN ×3 (13:15→21:21)
[2017-04-03 16:00] VITALS: BP 109/65; PULSE 65; RESP 18; TEMP 96.7; O2SAT 100
[2017-04-03 20:00] VITALS: BP 112/64; PULSE 69; RESP 18; TEMP 97.1; O2SAT 99
--- NOTE | 2017-04-03 22:10 | MP ---
cc: JOSLYN GARIBAY DATE OF SURGERY 04/02/2017 PREOPERATIVE DIAGNOSIS Right lower quadrant pain. POSTOPERATIVE DIAGNOSIS Right lower quadrant pain and pelvic inflammation. PROCEDURE 1. Diagnostic laparoscopy. 2. Laparoscopic appendectomy. ATTENDING SURGEON MD Jack COOK PIE Staff. ANESTHESIA General and local anesthetic. FINDINGS 1. Some acute inflammation of the uterus and fallopian tubes and some inflammatory fluid in the pelvis. 2. Normal outward appearance of the appendix. BLOOD LOSS Less than 10 cc. COMPLICATIONS None. INDICATIONS FOR PROCEDURE The patient is a 21-year-old female with 1 week of right lower quadrant pain. The patient was admitted for rule out appendicitis and after discussion with the patient about risks, benefits, alternatives to observation as well as diagnostic laparoscopy and appendectomy she wished to undergo diagnostic laparoscopy and appendectomy. PROCEDURE IN DETAIL The patient was taken to the operating room, placed in supine position, placed under general endotracheal anesthesia. The patient's abdomen was prepped and draped in sterile fashion. Time-out was performed. The abdomen was entered through a Agudelo type technique just below the umbilicus with a curvilinear incision. Local anesthetic was used at all port sites. We directly opened the fascia with the 11-blade scalpel under direct visualization. We placed a 10 mm trocar into the abdomen without difficulty under direct visualization. We insufflated the abdomen with CO2 and placed a 5 mm 30 degree camera into the abdominal cavity and surveyed the abdomen. There was no evidence of any complication from our entry. There was some dilated colon and small bowel and we had poor visualization at this point and they elected to place 2 5 mm ports to gain some better visualization and be able to manipulate viscera. I placed a 5-mm port in a suprapubic position and a 5 mm port in the left lower quadrant under direct visualization with a laparoscope. I was able to use graspers to evaluate the abdomen. There only abnormality noted was some inflammation of the uterus, fallopian tubes and some inflammatory fluid in the pelvis. The appendix appeared essentially normal although the appendicolith was visualized in the appendix, did not appear to be causing any obstruction or inflammation. At this point in time due to the patient having a appendicolith and as discussed with the patient previously we went ahead and proceed with appendectomy. Used the white load on the [place] [facility] 35 mm stapler to divide the base of the appendix at it splayed into the cecum and a second load was used to divide the appendix. The appendix was removed from the abdomen with the EndoCatch bag through the Agudelo 10 mm port. We were then able to continue to evaluate the abdomen. There was essentially no abnormality other than the inflammation in the pelvis stated earlier. Our staple line was intact with no bleeding. We placed omentum back in the right lower quadrant. We removed all ports under visualization of the laparoscope and expressed pneumoperitoneum. We closed the fascia with a [id number] 0 Vicryl suture. We closed the skin of all port sites with 4-0 Monocryl and Dermabond. The patient was discontinued from anesthesia, taken to the PACU in stable condition. The patient tolerated the procedure well. No apparent complications. All counts were correct. I was present and scrubbed throughout the entire procedure. MD RUBY NewbyG/JOSÉ LUIS /5:56 PM /9:53 PM MTDD
[2017-04-04] VITALS: BP 126/65; PULSE 59; RESP 16; TEMP 97.7; O2SAT 99
[2017-04-04] MEDS: ceFOXitin INJ 2 GM in SODIUM CHLORIDE 0.9% INJ 100 ML IV SCH ×4 (03:00→21:43)
[2017-04-04] MEDS: ACETAMINOPHEN/HYDROcodone 325 MG/5 MG TAB PO PRN ×4 (03:06→22:02)
[2017-04-04] MEDS: SODIUM CHLOR 0.9% 1000 ML INJ 1,000 ML IV SCH ×2 (05:01→17:30)
[2017-04-04 08:00] VITALS: BP 123/81; PULSE 70; RESP 18; TEMP 97.7; O2SAT 99
--- NOTE | 2017-04-04 08:48 | PD.CONS ---
HPI Chief Complaint abdominal pain Date Seen: Apr 04, 2017 Travel History International Travel<30 Days: No Contact w/Intl Traveler<30Days: No Known Affected Area: No History of Present Illness HPI Pt is a 21 yo P0, admitted with appendicitis. Pt has laparoscopic appendectomy 04-02-2017, at which time appearance of PID was noted. SOCIALLY RESPONSIBLE INVESTMENT ADVISER was consulted and seen 04-03-2017. Pt has been started on Cefoxitin and Doxycycline. She denies any fevers, nausea or vomiting. She had brownish discharge 04-03-2017 and is now more 'reddish'. Pt has been on OCPs but has missed pills for about 1 week Para: 0 : 0 Last Menstrual Period: Apr 04, 2017 Miscarriage: 0 : 0 History Past Surgical History Narrative Surgical Appendectomy 04-02-2017 Family History Family History: Negative Allergies-Medications (Allergen,Severity, Reaction): Coded Allergies: No Known Allergies (Unverified , 04/01/17) Home Meds No Active Prescriptions or Reported Meds Review of Systems Except as stated in HPI: all other systems reviewed are Neg Physical Exam Vital Signs Date Time Temp Pulse Resp B/P Pulse Ox O2 Delivery O2 Flow Rate FiO2 04/04/17 00:00 97.7 59 16 126/65 99 04/03/17 20:00 97.1 69 18 112/64 99 04/03/17 16:00 96.7 65 18 109/65 100 04/03/17 12:11 97.3 75 18 123/69 99 Narrative GENERAL: Well-nourished, well-developed patient. SKIN: Warm and dry. HEAD: Normocephalic and atraumatic. EYES: No scleral icterus. No injection or drainage. ENT: No nasal drainage noted. Mucous membranes pink. Airway patent. NECK: Supple, trachea midline. No JVD. CARDIOVASCULAR: Regular rate and rhythm without murmurs, gallops, or rubs. RESPIRATORY: Breath sounds equal bilaterally. No accessory muscle use. BREASTS: Bilateral exam showed no masses , no retractions, no nipple discharge. ABDOMEN/GI: Abdomen soft, tender bilaterally, right more than left, bowel sounds present, no rebound, no guarding No palpable masses Dressings dry GENITOURINARY: External Genitalia: intact and normal in appearance BUS glands: [-] Cervix: [-] Dilatation: [-] Effacement: [-] Station: [-] Presentation: [-] Membranes: [intact or ruptured] Uterine Contractions: [-] FHT's: Category: [-] Baseline: [-] Reactive: [-] Variability: [-] Decels: [-] EXTREMITIES: No cyanosis or edema. BACK: Nontender without obvious deformity. No CVA tenderness. NEUROLOGICAL: Awake and alert. Motor and sensory grossly within normal limits. Five out of 5 muscle strength in all muscle groups. Normal speech. Data Data Orders Acetamin-Hydrocod 325-5 Mg ([place] 5-325 (04/03/17 12:30) Acetamin-Hydrocod 325-5 Mg ([place] 5-325 (04/03/17 12:30) Ketorolac Inj (Toradol Inj) (04/03/17 12:30) Attending Discharge Order (04/03/17 ) Labs GC/Chlamydia PCR negative MDM Medical Record Reviewed: Yes Plan Pt is a 21 yo P0, POD 2 s/p laparoscopic appendectomy. Appearance of PID was noted at surgery and we were consulted post-op. Pictures have been reviewed and no TOA noted. Pt has been on Cefoxitin and Doxycycline She has remained afebrile since surgery but abdominal tenderness clinically has not resolved I would recommend another 24 hours of IDV antibiotics o/a persistent abdominal tenderness clinically. As per earlier recommendations, she can be discharged home with Doxycycline PO, and Flagyl 500mg PO TID. We will obtain CBC today Admitting diagnosis: Appendicitis CoMorbid Conditions PID Scripts No Active Prescriptions or Reported Meds John Jones MD Apr 04, 2017 08:47
[2017-04-04] MEDS: DOXYCYCLINE HYCLATE 100 MG CAP PO SCH ×2 (08:53→21:43)
[2017-04-04] MEDS: SODIUM CHLORIDE 0.9% FLUSH 10 ML FLUSH IV FLUSH SCH ×2 (08:57→21:43)
--- NOTE | 2017-04-04 10:24 | HHI.PR ---
Subjective Subjective Notes some dizziness with ambulation, tolerating po, c/o pain around umbilicus Objective Vitals/I&O Vital Signs Date Time Temp Pulse Resp B/P Pulse Ox O2 Delivery O2 Flow Rate FiO2 04/04/17 08:00 97.7 70 18 123/81 99 04/02/17 18:15 Nasal Cannula [address] abd/pelvis from [place] ED---4mm appendicolith in the distal aspect of the appendix with possible early appendicitis Cardiovascular: Regular Lungs: Clear Abdomen: Other (soft +ttp at umbilicus) A/P Assessment and Plan S/P Lap appy belly button red, no drainage PLAN reg diet oob pain control d/c planning likely today Miguelito Simon MD Apr 04, 2017 10:24
[2017-04-04 10:39] LABS: AUTOMATED NEUTROPHIL # 5.5 TH/MM3 (1.8-7.7); BASOPHIL % 0.2 % (0.0-2.0); EOSINOPHIL # 0.1 TH/MM3 (0-0.4); EOSINOPHIL % 1.5 % (0.0-4.0); HEMATOCRIT 37.4 % (35.0-46.0); HEMO FLAGS DIFF FINAL; LYMPH % 22.1 % (9.0-44.0); LYMPHOCYTE # 1.7 TH/MM3 (1.0-4.8); MEAN CELL VOLUME 82.9 FL (80.0-100.0); MEAN CORPUSCULAR HEMOGLOBIN 27.2 PG (27.0-34.0); MEAN CORPUSCULAR HGB CONC 32.8 % (32.0-36.0); MONO % 6.9 % (0.0-8.0); NEUT % 69.3 % (16.0-70.0); PLATELET COUNT 272 TH/MM3 (150-450); RED BLOOD COUNT 4.51 MIL/MM3 (4.00-5.30); RED CELL DISTRIBUTION WIDTH 13.1 % (11.6-17.2); WHITE BLOOD COUNT 7.9 TH/MM3 (4.0-11.0)
[2017-04-04 12:00] VITALS: BP 117/78; PULSE 79; RESP 18; TEMP 97.3; O2SAT 98
[2017-04-04 16:05] VITALS: BP 101/59; PULSE 82; RESP 18; TEMP 97.7; O2SAT 97
[2017-04-04 20:35] VITALS: BP 136/79; PULSE 75; RESP 17; TEMP 96.8; O2SAT 99
[2017-04-04] MEDS ORDERED: MICONAZOLE NITRATE 2% VAG CREAM 45 GM VAGINAL SCH (23:00)
[2017-04-05 00:19] VITALS: BP 135/87; PULSE 82; RESP 17; TEMP 97.3; O2SAT 98
[2017-04-05] MEDS: SODIUM CHLOR 0.9% 1000 ML INJ 1,000 ML IV SCH (03:30)
[2017-04-05] MEDS: ceFOXitin INJ 2 GM in SODIUM CHLORIDE 0.9% INJ 100 ML IV SCH ×3 (03:57→15:26)
[2017-04-05 08:00] VITALS: BP 131/69; PULSE 87; RESP 19; TEMP 97.9; O2SAT 98
[2017-04-05] MEDS: DOXYCYCLINE HYCLATE 100 MG CAP PO SCH (08:53)
[2017-04-05] MEDS: ACETAMINOPHEN/HYDROcodone 325 MG/5 MG TAB PO PRN ×2 (08:54→15:27)
[2017-04-05] MEDS: SODIUM CHLORIDE 0.9% FLUSH 10 ML FLUSH IV FLUSH SCH (08:54)
[2017-04-05] MEDS ORDERED: FLUCONAZOLE 100 MG TAB PO ONE (11:00)
[2017-04-05 12:00] VITALS: BP 129/73; PULSE 75; RESP 19; TEMP 96.8; O2SAT 98
[2017-04-05] MEDS ORDERED: NORC5TAB PO (16:57)
[2017-04-05] MEDS ORDERED: DOXY100C PO (17:00)
--- NOTE | 2017-04-06 14:27 | HHI.DS ---
Discharge Summary Admission Date Apr 02, 2017 at 05:04 Discharge Date: Apr 05, 2017 Admitting Diagnosis Appendicitis Brief History This is a 21 year old female with a past medical history of pre-diabetes (diet controlled) who developed sudden RIGHT lower quadrant pain 7 days ago. She has had mild nausea associated with the pain but no vomiting. She has had little appetite. She arrived to the ED at [place] for evaluation of abdominal pain and a CT abd/pelvis was obtained which showed 4 mm appendicolith in the distal aspect of appendix and possible early appendicitis. She reports her last bowel movement was two days ago. Her last menstrual cycle was Oct 2016 which is normal for her have a menstrual cycle only every few months. She does take control. A General Surgery admission has been requested for evaluation of possible acute appendicitis. CBC/BMP: 04/04/17 1011 PE at Discharge Alert and awake Cardio: RRR Resp: CTAB Abd: lap sites c/d/i; abd soft; tender at incision sites Hospital Course This is a 21 year old female POD3 diagnostic laparoscopy and laparoscopic appendectomy; findings consistent with pelvic inflammatory disease. REHABILITATION PHYSICIAN was contacted and started the patient on doxycycline. The patient did complain of East infection like symptoms and was given a one-time dose of Diflucan. The patient's pain was controlled using oral pain medications. The patient was able to tolerate a regular diet. The patient was discharged home with instructions to follow-up in the office as indicated on the discharge information. Her work release paperwork was filled out. Pt Condition on Discharge: Good Discharge Disposition: Discharge Home Discharge Instructions DIET: Follow Instructions for: As Tolerated, No Restrictions Activities you can perform: Partial Weight Bearing Activities to Avoid: Lifting/Bending, Strenuous Activity Estrella Gee Apr 06, 2017 14:27
--- NOTE | 2017-04-06 19:03 | EKG ---
Date Performed: 04/06/2017 Time Performed: 01:45:24 PTAGE: 21 years EKG: Sinus tachycardia. Normal ECG except for rate NO PREVIOUS TRACING DOCTOR: Nicola Corral Interpretating Date/Time 04/06/2017 19:01:52
== END 2017-04-05 20:02 | disposition home or self-care (01) ==
LOC: NEPE 03:05 → INTOOBSV 05:04 → NEDA 05:04 → N06A 06:29 → UNDODISIN 04-05 20:02
PROVIDERS: ADMIT Surgery; ATTEND Surgery
DX: K35.80 Unspecified acute appendicitis (principal)
CPT/HCPCS: 00840; 44970; 85025; 87491; 87591; 88304; 99285; G0378; J0131; J0690; J0694; J1100; J1170; J1885; J2250; J2405; J2710; J3010; J7030; J7120; 93005

== ENCOUNTER 2017-04-18 22:11 | Emergency (ER) | payer MEDICAID ==
[~2017-04-18 22:11] MED LIST changes: -BENT20TA PO; -BENZ1CAP34 PO; +DOXY100C PO; +NORC5TAB PO; -PRED10PA PO; -ZITHTAB PO
[2017-04-18 22:14] VITALS: BP 151/103; PULSE 97; RESP 16; TEMP 98.5; O2SAT 100
[2017-04-18 23:10] VITALS: BP 146/86; PULSE 105; RESP 16; O2SAT 98
[2017-04-18] MEDS ORDERED: DOXY1CAP74 PO (23:10)
[2017-04-18 23:42] LABS: AUTOMATED NEUTROPHIL # 5.1 TH/MM3 (1.8-7.7); BASOPHIL # 0.1 TH/MM3 (0-0.2); BASOPHIL % 0.8 % (0.0-2.0); EOSINOPHIL # 0.2 TH/MM3 (0-0.4); EOSINOPHIL % 2.9 % (0.0-4.0); HEMO FLAGS DIFF FINAL; LYMPH % 25.5 % (9.0-44.0); MEAN CELL VOLUME 83.6 FL (80.0-100.0); MEAN CORPUSCULAR HEMOGLOBIN 27.4 PG (27.0-34.0); MEAN CORPUSCULAR HGB CONC 32.8 % (32.0-36.0); MONO % 6.7 % (0.0-8.0); NEUT % 64.1 % (16.0-70.0); PLATELET COUNT 282 TH/MM3 (150-450); RED CELL DISTRIBUTION WIDTH 13.3 % (11.6-17.2)
--- NOTE | 2017-04-18 23:43 | PD ---
HPI Chief Complaint: Abdominal Pain Time Seen by Provider: 23:18 Travel History International Travel<30 days: No Contact w/Intl Traveler<30days: No Traveled to known affect area: No History of Present Illness HPI The patient is a 21 year old female who presents to the [facility] emergency department with a history of increased abdominal pain that she reports is present in bilateral lower quadrants of the abdomen in the suprapubic area that began on late Wednesday due to early Wednesday morning. The patient reports a recent history of being admitted to the hospital related to right lower quadrant abdominal pain status post appendectomy on April 02, 2017. The patient during laparoscopic appendectomy was diagnosed with PID on visualization of her pelvis. Gynecology was consulted. It was recommended that the patient be continued on IV antibiotic and then transitioned over to oral antibiotic. Regimen that was recommended by the CNC MANAGER was doxycycline for 14 days with the possible addition of Flagyl if there was concern for TOA. The patient reports that she was discharged home on doxycycline and Lortab. The patient reports that yesterday she began to have diarrhea. She reports that she had 2 episodes of diarrhea today. She denies having any blood in her stool or mucus in her stool. The patient additionally reports that over the last 24 hours she's had a burning sensation with urination. She reports that over the last 3-4 days she's had a white vaginal discharge. She denies having any new sexual partners or concerns about sexually transmitted infections. She reports that she has an allergy to condoms, therefore she does not use them. On review of systems, the patient denies any recent fevers, cough, congestion, neck pain, chest pain, shortness of breath, vomiting, or neurologic symptoms. She does incidentally also report having a migraine headache that is been present for the last 2 days. LMP: A week ago. PFSH Past Medical History Narrative Medical The patient's past medical history is significant for migraine headaches, irregular menstrual cycles, history of PID, history of being prediabetic. Autoimmune Disease: No Cancer: No Cardiovascular Problems: No Diabetes: Yes (pre diabetic) Patient Takes Glucophage: No Diminished Hearing: No Endocrine: No Genitourinary: No Headaches: Yes Immune Disorder: No Psychiatric: No Reproductive: No Respiratory: No Immunizations Current: Yes Migraines: Yes Sickle Cell Disease: No Thyroid Disease: No Tetanus Vaccination: Never Vaccinated Influenza Vaccination: No ?: Not LMP: 04/10/2017 Past Surgical History Narrative Surgical The patient's past surgical history is significant for laparoscopic appendectomy done on April 02, 2017 AICD: No Appendectomy: Yes (2 weeks ago ) Joint Replacement: No Pacemaker: No Social History Alcohol Use: No Tobacco Use: No Substance Use: No Allergies-Medications (Allergen,Severity, Reaction): Coded Allergies: No Known Allergies (Unverified , 04/18/17) Reported Meds & Prescriptions Reported Meds & Active Scripts Active Flagyl (Metronidazole) 500 Mg Tab 500 Mg PO TID 7 Days Reported Doxycycline 40 Mg Cap 100 Mg PO DAILY [employer] (Hydrocodone-Acetaminophen) 5-325 mg Tab 1 Tab PO Q4H PRN Review of Systems Except as stated in HPI: all other systems reviewed are Neg General / Constitutional: No: Fever Eyes: No: Visual changes HENT: No: Headaches Cardiovascular: No: Chest Pain or Discomfort Respiratory: No: Shortness of Breath Gastrointestinal: Positive: Diarrhea, Abdominal Pain, Changes in Bowel Habits, No: Nausea, Vomiting, Hematemesis, Hematochezia, Indigestion, Loss of Appetite Genitourinary: Positive: Dysuria, Pelvic Pain, Discharge Musculoskeletal: No: Pain Skin: No Rash Neurologic: No: Weakness, Focal Abnormalities, Change in Mentation, Slurred Speech, Sensory Disturbance Psychiatric: No: Depression Endocrine: No: Polydipsia Hematologic/Lymphatic: No: Easy Bruising Physical Exam Narrative General: The patient is a well-developed well-nourished female in no acute distress. Head and Neck exam: Head is normocephalic atraumatic. Eyes: EOMI, pupils are equal round and reactive to light. Nose: Midline septum with pink mucous membranes Mouth: Dentition unremarkable. Moist mucus membranes. Posterior oropharynx is not erythematous. No tonsillar hypertrophy. Uvula midline. Airway patent. Neck: No palpable lymphadenopathy. No nuchal rigidity. No thyromegaly. Cardiovascular: Regular rate and rhythm without murmurs, gallops, or rubs. Lungs: Clear to auscultation bilaterally. No wheezes, rhonchi, or rales. Abdomen: Soft, with tenderness on palpation in bilateral lower quadrants of the abdomen worse in the right lower quadrant compared to the left, also involving the suprapubic area. No guarding, rebound, or rigidity. Normal bowel sounds are audible. Negative [place] sign. Extremities: No clubbing, cyanosis, or edema. 2+ pulses in all 4 extremities. No calf tenderness on palpation. Back: No spinous process tenderness to palpation. No costovertebral angle tenderness to palpation. Neurologic Exam: Grossly nonfocal. Skin Exam: No rash noted. Intact skin that is warm and dry. Gynecologic exam: The patient was placed in the dorsal lithotomy position. Her external genitalia were examined. She had no evidence of rash or lesions. The speculum was placed into her vagina and the cervix was identified. She has a thin white discharge noted. This appears to be a physiologic discharge. No cervical friability. On Bimanual exam: she has no cervical motion tenderness. No adnexal tenderness or prominence noted on palpation. No uterine tenderness or enlargement noted on palpation. Data Data Last Documented VS Vital Signs Date Time Temp Pulse Resp B/P Pulse Ox O2 Delivery O2 Flow Rate FiO2 04/18/17 23:52 99 Room Air 04/18/17 23:10 105 16 146/86 04/18/17 22:14 98.5 Orders Complete Blood Count With Diff (04/18/17 23:26) Comprehensive Metabolic Panel (04/18/17 23:26) C-Reactive Protein (Crp) (04/18/17 23:26) Lipase (04/18/17 23:26) Ua Includes Microscopic (04/18/17 23:26) Thyroid Stimulating Hormone (04/18/17 23:26) Iv Access Insert/Monitor (04/18/17 23:26) Ecg Monitoring (04/18/17 23:26) Oximetry (04/18/17 23:26) Ed Urine Pregnancytest Poc (04/18/17 23:26) Blood Culture (04/18/17 23:40) Lactic Acid Sepsis Protocol (04/18/17 23:40) Gc And Chlamydia Pcr (04/18/17 23:40) Wet Prep Profile (04/18/17 23:40) Ct Abd/Pel W Iv Contrast(Rout) (04/18/17 23:52) Iohexol 350 Inj (Omnipaque 350 Inj) (04/19/17 00:58) Ketorolac Inj (Toradol Inj) (04/19/17 01:30) Ondansetron Inj (Zofran Inj) (04/19/17 01:30) Metronidazole 500 Mg Inj (Flagyl 500 Mg (04/19/17 02:15) Labs Laboratory Tests Test 04/18/17 04/19/17 04/19/17 23:30 00:14 01:20 White Blood Count 8.0 TH/MM3 Red Blood Count 4.30 MIL/MM3 Hemoglobin 11.8 GM/DL Hematocrit 36.0 % Mean Corpuscular Volume 83.6 FL Mean Corpuscular Hemoglobin 27.4 PG Mean Corpuscular Hemoglobin 32.8 % Concent Red Cell Distribution Width 13.3 % Platelet Count 282 TH/MM3 Mean Platelet Volume 8.8 FL Neutrophils (%) (Auto) 64.1 % Lymphocytes (%) (Auto) 25.5 % Monocytes (%) (Auto) 6.7 % Eosinophils (%) (Auto) 2.9 % Basophils (%) (Auto) 0.8 % Neutrophils # (Auto) 5.1 TH/MM3 Lymphocytes # (Auto) 2.0 TH/MM3 Monocytes # (Auto) 0.5 TH/MM3 Eosinophils # (Auto) 0.2 TH/MM3 Basophils # (Auto) 0.1 TH/MM3 CBC Comment DIFF FINAL Differential Comment Urine Color YELLOW Urine Turbidity HAZY Urine pH 5.5 Urine Specific [place] 1.020 Urine Protein NEG mg/dL Urine Glucose (UA) NEG mg/dL Urine Ketones NEG mg/dL Urine Occult Blood NEG Urine Nitrite NEG Urine Bilirubin NEG Urine Urobilinogen LESS THAN 2.0 MG/DL Urine Leukocyte Esterase SMALL Urine RBC 1 /hpf Urine WBC 2 /hpf Urine Squamous Epithelial 9 /hpf Cells Urine Mucus FEW /lpf Microscopic Urinalysis Comment Sodium Level 138 MEQ/L Potassium Level 4.0 MEQ/L Chloride Level 104 MEQ/L Carbon Dioxide Level 27.5 MEQ/L Anion Gap 7 MEQ/L Blood Urea Nitrogen 13 MG/DL Creatinine 0.66 MG/DL Estimat Glomerular Filtration 140 ML/MIN Rate Random Glucose 94 MG/DL Calcium Level 8.8 MG/DL Total Bilirubin 0.2 MG/DL Aspartate Amino Transf 26 U/L (AST/SGOT) Alanine Aminotransferase 19 U/L (ALT/SGPT) Alkaline Phosphatase 85 U/L C-Reactive Protein 0.34 MG/DL Total Protein 7.6 GM/DL Albumin 3.4 GM/DL Lipase 102 U/L Thyroid Stimulating Hormone 2.030 uIU/ML 3rd Gen Lactic Acid Level 1.3 mmol/L Clue Cells (Wet Prep) PRESENT Vaginal Trichomonas (Wet Prep) NONE SEEN Vaginal Yeast (Wet Prep) NONE SEEN MDM Medical Decision Making Medical Screen Exam Complete: Yes Emergency Medical Condition: Yes Medical Record Reviewed: Yes Interpretation(s) Last Impressions Abdomen/Pelvis CT 04/18/17 1482 Signed Impressions: Service Date/Time: Wednesday, April 19, 2017 00:57 - CONCLUSION: 1. No acute finding is identified to explain the clinical symptoms. 2. There are postsurgical findings in the right lower quadrant related to prior appendectomy. There is a small volume of free fluid in the posterior cul-de-sac. Dillon Quarles MD Differential Diagnosis Postoperative intra-abdominal abscess, versus PID, versus cystitis Narrative Course During the course of the patients emergency department visit, the patients history, examination, and differential diagnosis were reviewed with the patient. The patient had IV access obtained and blood work sent for analysis. The patient was placed on a awake overnight monitor with oximetry and blood pressure monitoring. A CT scan of the abdomen and pelvis was ordered. A review of the electronic medical record reveals that one of the CNC MANAGER service all the patient recommended that the patient be discharged on doxycycline and Flagyl. The patient reports that the only medication she was discharged home on was doxycycline. She will be given a dose of Flagyl here. The patient was initially provided Toradol for pain, Zofran for nausea. The patients laboratory studies were reviewed and remarkable for a CBC that is within normal limits, CMP is unremarkable, C-reactive protein 0.34, lipase 102, TSH 2.03, lactic acid 1.3, urinalysis shows small leukocyte esterase, 9 squamous epithelial cells otherwise unremarkable the small leukocyte esterase likely related to contamination. Wet prep is positive for clue cells. Radiology studies were reviewed and remarkable for a CT scan of the abdomen and pelvis that shows no findings to identify her explained the patient's clinical abdominal pain. There are post surgical findings in the right lower quadrant related to prior appendectomy, there is a small volume of free fluid in the posterior cul-de-sac. The patient will be discharged home on Flagyl in addition to the doxycycline prescription that she is completing. She is instructed regarding the importance of following up with a hog ribber. She is given the name of the hog ribber on-call, Dr. Sanchez for follow-up. The patient is additionally requesting a prescription vaginal cream for yeast medicine. She reports that she usually gets a yeast infection when she is on antibiotic. The patient was given a prescription for Terazol. The patient is resting comfortably and feels better, is alert and in no distress. The patients results and examination findings were discussed with the patient. The repeat examination is unremarkable and benign. The history, exam, diagnostic testing, and current condition do not suggest any significant pathology to warrant further testing, continued ED treatment, admission, or surgical evaluation at this point. The vital signs have been stable. The patient does not have uncontrollable pain, intractable vomiting, or other significant symptoms. The patient's condition is stable and appropriate for discharge. The patient will pursue further outpatient evaluation with a primary care physician or other designated or consulting physician as indicated in the discharge instructions. The patient expressed understanding and was agreeable with this plan. Diagnosis Primary Impression: Abdominal pain Qualified Code: R10.30 - Lower abdominal pain Additional Impressions: PID (acute pelvic inflammatory disease) Bacterial vaginosis Referrals: Buzz Sanchez MD 3 days Patient Instructions: Bacterial Vaginosis (ED), General Instructions, Pelvic Inflammatory Disease (ED) Med/Other Pt SpecificInfo: Prescription(s) given Scripts Terconazole Vaginal Cream (Terazol 7 Vaginal Cream)0.4 % Cream1 Appl VAGINAL HS 7 Days Ref 0 1 applicatorful intravaginally x 7 nights Prov:Courtney Corral MD 04/19/17 Metronidazole (Flagyl)500 Mg [id number] Mg PO TID 7 Days Ref 0 Prov:Courtney Corral MD 04/19/17 Disposition: 01 DISCHARGE HOME Condition: Stable Courtney Corral MD Apr 18, 2017 23:43
[2017-04-18 23:52] VITALS: O2SAT 99
[2017-04-18 23:52] LABS: BLOOD, URINE NEG (NEG); GLUCOSE,URINE NEG (NEG); KETONE, URINE NEG (NEG); MUCUS URINE FEW /lpf (OCC); NITRITE,URINE NEG (NEG); PH, URINE 5.5 (5.0-8.5); SQUAMOUS EPITHELIAL CELL URINE 9 /hpf (0-5); URINE COLOR YELLOW (YELLW/STRAW)
[2017-04-19 00:13] LABS: ALT (GPT) 19 U/L (9-42); ANION GAP 7 MEQ/L (5-15); AST (GOT) 26 U/L (16-38); BICARBONATE 27.5 MEQ/L (21.0-32.0); BLOOD UREA NITROGEN 13 MG/DL (7-18); CHLORIDE 104 MEQ/L (98-107); GLOMERULAR FILTRATION RATE 140 ML/MIN (>89); SODIUM (NA) 138 MEQ/L (136-145)
[2017-04-19 00:23] LABS: ALKALINE PHOSPHATASE 85 U/L (45-117); TOTAL BILIRUBIN ADULT 0.2 MG/DL (0.2-1.0)
[2017-04-19] MEDS ORDERED: IOHEXOL 350 MG/ML 10 ML VIAL (for RAD DIAG) IV ONE (00:58)
--- NOTE | 2017-04-19 01:16 | RADRPT ---
EXAM DATE/TIME: 04/19/2017 00:57 [facility] COMPARISON: CT ABDOMEN & PELVIS W/O CONTRAST, April 02, 2017, 0:28. CT ABDOMEN & PELVIS W CONTRAST, February 22, 2017, 16:19. INDICATIONS : Status post appendectomy 2 weeks ago. Increased pelvic pain. IV CONTRAST: 80 cc Omnipaque 350 (iohexol) IV ORAL CONTRAST: No oral contrast ingested. RADIATION DOSE: 11.01 CTDIvol (mGy) MEDICAL HISTORY : None SURGICAL HISTORY : Appendectomy. ENCOUNTER: Initial ACUITY: 1 day PAIN SCALE: 5/10 LOCATION: Bilateral pelvis TECHNIQUE: Volumetric scanning of the abdomen and pelvis was performed. Using automated exposure control and ad justment of the mA and/or kV according to patient size, radiation dose was kept as low as reasonably achievable to obtain optimal diagnostic quality images. DICOM format image data is available electro nically for review and comparison. FINDINGS: LOWER LUNGS: The visualized lower lungs are clear. LIVER: Homogeneous density without lesion. There is no dilation of the biliary tree. No calcified [place] es. SPLEEN: Normal size without lesion. PANCREAS: Within normal limits. KIDNEYS: Normal in size and shape. There is no mass, stone or hydronephrosis. ADRENAL GLANDS: Within normal limits. VASCULAR: There is no aortic aneurysm. BOWEL/MESENTERY: The stomach, small bowel, and colon demonstrate no acute abnormality. Surgical staple line is presen t in the right lower quadrant related to interval appendectomy. There is no free intraperitoneal air. There is a small volume of free fluid in the posterior cul-de-sac. ABDOMINAL WALL: Within normal limits. RETROPERITONEUM: There is no lymphadenopathy. BLADDER: No wall thickening or mass. REPRODUCTIVE: Within normal limits. INGUINAL: There is no lymphadenopathy or hernia. MUSCULOSKELETAL: Within normal limits for patient age. CONCLUSION: 1. No acute finding is identified to explain the clinical symptoms. 2. There are postsurgical findings in the right lower quadrant related to prior appendectomy. There i s a small volume of free fluid in the posterior cul-de-sac. Dillon Quarles MD on April 19, 2017 at 1:07 Board Certified Radiologist. This report was verified electronically.
[2017-04-19] MEDS ORDERED: METR-1 PO (01:29)
[2017-04-19] MEDS ORDERED: ONDANSETRON HCL 4 MG/2 ML VIAL IV PUSH ONE (01:30)
[2017-04-19] MEDS ORDERED: KETOROLAC TROMETHAMINE 30 MG/ML (IVP) VIAL IV PUSH ONE (01:30)
[2017-04-19] MEDS ORDERED: metroNIDAZOLE 500 MG INJ 100 ML IV ONE (02:15)
[2017-04-19] MEDS ORDERED: DIFL150T PO (02:56)
[2017-04-19] MEDS ORDERED: TERC.4%V VAGINAL (02:58)
[2017-04-19 04:08] LABS: CHLAMYDIA PCR NOT DETECTED (NOT DETECT); NEISSERIA PCR NOT DETECTED (NOT DETECT)
[2017-05-05] MEDS ORDERED: PEPC20TA11 PO (03:21)
[2017-05-05] MEDS ORDERED: IBUP-232 PO (03:21)
== END 2017-04-19 03:00 | disposition home or self-care (01) ==
LOC: NEPE 22:11
DX: R10.30 Lower abdominal pain, unspecified (principal); N73.9 Female pelvic inflammatory disease, unspecified; N76.0 Acute vaginitis; E11.9 Type 2 diabetes mellitus without complications; Z79.899 Other long term (current) drug therapy
CPT/HCPCS: 74177; 80053; 81001; 83605; 83690; 84443; 84703; 85025; 86140; 87040; 87210; 87491; 87591; 96374; 96375; 99285; J1885; J2405; Q9967